=== PATIENT | female | born 1975 | race Caucasian/White ===

== ENCOUNTER 2017-12-28 10:31 | Emergency (ER) | payer OTHER ==
[~2017-12-28] VITALS: Ht 172.7 cm; Wt 63.5 kg
[2017-12-28] MEDS ORDERED: BUPR150ER PO (10:45)
[2017-12-28] MEDS ORDERED: Prednisone20 MG PO (10:51)
== END 2017-12-28 10:53 | disposition home or self-care (01) ==
LOC: ER 10:31
DX: L23.7 Allergic contact dermatitis due to plants, except food (principal); Z79.899 Other long term (current) drug therapy
CPT/HCPCS: 99282